=== PATIENT | female | born 1980 | race Caucasian/White ===

== ENCOUNTER → 2018-03-05 06:20 | Outpatient (CLI) | payer BC, SELFPAY ==
[2018-03-05 10:34] LABS: Anion Gap 6 (5-15); BUN 16 mg/dL (7-18); BUN/Creat Ratio 21.8 RATIO (10-20); Chloride 107 mmol/L (98-107); Cholesterol 226 mg/dL (200); Creatinine, Serum 0.73 mg/dL (0.55-1.02); EST Glomerular Filtration Rate 93 mL/min (>60); Est Glom Filt Rate - Afr Amer 113 mL/min (>60); Glucose 92 mg/dL (74-106); High Density Lipoprotein 38 mg/dL; Potassium 4.3 mmol/L (3.5-5.1); Sodium Level 139 mmol/L (136-145); Thyroid Stim Hormone (TSH) 3.02 uIU/mL (0.358-3.74); Triglycerides 186 mg/dL; Very Low Density Lipoprotein 37 mg/dL (5-40)
== END ==
PROVIDERS: Family Provider Family Medicine; PCP Family Medicine; Visit Provider Family Medicine
DX: Z00.00 Encounter for general adult medical examination without abnormal findings (principal)
CPT/HCPCS: 80048; 80061; 84443

== ENCOUNTER → 2018-04-27 11:06 | Outpatient (CLI) | payer BC, SELFPAY | LOC: MTRAD 11:10 | PROVIDERS: Family Provider Family Medicine; PCP Family Medicine; Visit Provider Family Medicine | DX: M25.571 Pain in right ankle and joints of right foot (principal) | CPT/HCPCS: 73610 ==

== ENCOUNTER → 2019-03-08 16:12 | Outpatient (CLI) | payer BC, SELFPAY ==
[2017-03-03 11:54] VITALS: BMI 31.2
--- NOTE | 2019-03-08 16:17 | RAD_ITS ---
STUDY: X-RAY - ABDOMEN/PELVIS REASON FOR EXAM: Female, 39 years old. Abdominal pain TECHNIQUE: 3 views of the abdomen were performed COMPARISON: None. FINDINGS: Normal visualized lung bases. There is an unremarkable bowel gas pattern. There is no demonstrated free abdominal air. The visualized liver, spleen and kidneys are grossly normal in size and morphology. Normal soft tissue structures. Normal visualized osseous structures. RAD/Abd Inc Decub and/or Erect IMPRESSION: Normal x-ray examination of the abdomen and pelvis. Electronically Signed: Soraya Hdz, at 16:57 EDT Tel , Service support ,
== END ==
LOC: MTRAD 16:15
PROVIDERS: Family Provider Family Medicine; PCP Family Medicine; Referring Provider Nurse Practitioner Adult Health; Visit Provider Nurse Practitioner Adult Health
DX: R10.9 Unspecified abdominal pain (principal)
CPT/HCPCS: 74019

== ENCOUNTER 2019-03-11 10:35 | Emergency (ER) | payer BC, SELFPAY ==
[2019-03-11 10:37] VITALS: BP 153/85; PULSE 89; RESP 16; TEMP 36.8; O2SAT 100; BMI 33.6
--- NOTE | 2019-03-11 10:52 | CT_ITS ---
HISTORY: CONSTIPATION, ABD DISTENTION, NAUSEA/VOMITING X 4 DAYS,HYSTERECTOMY, CHOLECYSTECTOMY, APPENDECTOMY TECHNIQUE: Helically acquired images were obtained of the abdomen and pelvis with oral and without IV contrast. A radiation dose optimization technique was used for this scan. COMPARISON: Abdominal radiographs 03/08/19. FINDINGS: # of images incl. paperwork: [id number] LOWER CHEST: No acute or concerning findings lung bases. LIVER: Homogeneous. No focal mass. GALLBLADDER AND BILIARY TREE: Status post cholecystectomy. No intra- or extrahepatic biliary ductal dilation. KIDNEYS AND URETERS: Normal renal size and position. No hydronephrosis. ADRENAL GLANDS: Non-enlarged. SPLEEN: Normal size, no mass. PANCREAS: No pancreatic inflammation or mass. BOWEL: Prior appendectomy. No obstruction or inflammation of the bowel. Noninflamed duodenal diverticulum. Scattered colonic diverticula, no diverticulitis. LYMPH NODES: No enlarged mesenteric or retroperitoneal lymph nodes. PERITONEUM: No ascites or free air. No other fluid collection. VESSELS: No abdominal aortic aneurysm. URINARY BLADDER: Unremarkable. REPRODUCTIVE ORGANS: No pelvic masses. Status post hysterectomy. Left ovary unremarkable. Right ovary not identified.. ABDOMINAL WALL: No concerning findings. BONES: No acute osseous abnormality. CT/Abdomen/Pel W ORAL Cont Only IMPRESSION: No acute or concerning findings. Individualized dose optimization techniques were used for this CT. at 1401 Reported and signed by: Rene Espinoza MD Electronically Signed: Rene Espinoza, at 14:00 EDT Tel , Service support ,
--- NOTE | 2019-03-11 10:53 | ED.DCSUM_ITS ---
History of Present Illness Chief Complaint: Constipation Informant: Patient Onset: Days Context: Sudden Onset Timing: Continuous, Waxes and wanes Quality: Generalized colicky pain Location: Generalized abdominal Current Severity: Mild Maximum Severity: Moderate Worsened by: Vomiting, palpation Relieved by: Nothing Associated Symptoms: Nausea and vomiting today and no flatus Narrative: Patient is a 39-year-old woman status post appendectomy, right salpingo- oophorectomy, abdominal hysterectomy and exploratory laparotomy who presents with no bowel movement for the past several days. Today she reported nausea and vomiting x2 and reports no flatus since yesterday. She was seen by her primary care physician and had x-rays on Friday which revealed significant fecal stasis. Patient was instructed to drink a bottle of mag citrate on Friday. Since she had no results on Friday or Friday was instructed to drink a bottle of mag citrate yesterday, once a day. Since she has had no results she was instructed to come to the emergency department. She denies fever, chills night sweats. She denies urologic symptoms. She denies cardiopulmonary symptoms. She denies prior history of bowel obstruction. She has seen Dr. David Parks. Prior similar symptoms: Yes Recent Illness/Hospitalization: No - Past Medical History (1) Diabetes Status: Chronic (2) Gout Status: Chronic (3) HTN (hypertension) Status: Chronic (4) Restless leg syndrome Status: Chronic Past Medical History - Allergies and Home Meds Allergies/Adverse Reactions: Allergies shellfish derived Allergy (Verified 03/11/19 10:39) Shortness of breath Primary Care Physician: Jose Soto MD [Primary Care Provider] - Surgical History: appendectomy, hysterectomy - Right salpingo-oophorectomy Lives: Spouse/ Significant Other Smoking Status: Current every day smoker Alcohol: Rare Drugs: None Review of Systems General: Denies: Chills, Fever, Sweats Eyes: Denies: Visual changes - bilaterally, Blurred Vision - bilaterally, Diplopia ENT: Denies: Rhinorrhea, Sore throat Cardiovascular: Denies: Chest pain, Palpitations, Heart racing Respiratory: Denies: Dyspnea, Cough, Dyspnea on exertion Gastrointestinal: Reports: Abdominal pain, Nausea, Vomiting, Constipation. Denies: Diarrhea, Melena, Hematochezia, -, - Genitourinary: Denies: Dysuria, Hematuria, Frequency Musculoskeletal: Denies: Myalgias, Arthralgias, Neck pain, Back pain, Swelling, Extremity Pain, -, - Skin: Denies: Rash, Wounds Neurological: Denies: Headache, Weakness, Numbness Hematologic: Denies: Easy bruising, Easy bleeding Allergy: Denies: Uticaria, Swelling of the mouth Physical Exam Vital Signs/Narrative: Vital Signs Temp Pulse Resp BP Pulse Ox 03/11/19 10:37 98.2 F 89 16 153/85 H 100 Inital Vital Signs reviewed: Yes Abdomen: Soft, No masses, Tender, Guarding, Hypoactive bowel sounds - Patient is tympanitic to percussion., Ventral hernia, Umbilical hernia. Negative for: Nontender, Nondistended, Normal bowel sounds, Rebound tenderness, Hyperactive bowel sounds, Hepatomegaly, Splenomegaly, Mass Rectal: Deferred Back: Nontender, Normal Inspection Extremities: Nontender, No edema Skin: Normal color, No rash, No Trauma. Negative for: Cyanosis, Diaphoresis, Jaundice Neurological: Alert, Oriented x3, Cranial nerves II-XII grossly intact, Normal Strength, Normal Sensation Psychological: Normal affect, Normal Mood Diagnostic/Tx/Re-eval Impressions Abdomen CT 03/11/19 10:52 IMPRESSION: No acute or concerning findings. Individualized dose optimization techniques were used for this CT. at 1401 Reported and signed by: Rene Espinoza MD Electronically Signed: Rene Espinoza, at 14:00 EDT Tel , Service support , 03/11/19 10:52 Abdomen/Pel W ORAL Cont Only [CT] Stat Laboratory Results 03/11/19 03/11/19 11:52 11:52 WBC 9.2 RBC 4.54 Hgb 14.4 Hct 42.4 MCV 93.4 MCH 31.7 MCHC 34.0 RDW 12.7 RDW Differential 43.0 Plt Count 341 MPV 10.4 Immature Gran % (Auto) 0.100 Neut % (Auto) 62.7 Lymph % (Auto) 27.0 [place] % (Auto) 8.4 Eos % (Auto) 1.5 Baso % (Auto) 0.3 Absolute Neuts (auto) 5.7 Absolute Lymphs (auto) 2.47 Total Counted Not Reportable Sodium 139 Potassium 4.0 Chloride 108 H Carbon Dioxide 27.0 Anion Gap 4 L BUN 12 Creatinine 0.85 Estim Creat Clear Calc 84.70 Est GFR (MDRD) Af Amer 94 Est GFR (MDRD) Non-Af 78 BUN/Creatinine Ratio 14.1 Glucose 98 Calcium 9.1 - Medical Decision Making Since patient had x-ray on Friday and has had no improvement and now reports no flatus with nausea and vomiting CT of the abdomen with p.o. contrast was obtained since it has a much higher sensitivity than plain films. BMP was obtained to assess electrolytes, CO2/anion gap and renal function. CBC to evaluate for white count. Once results are available we will reexamine patient and contact Dr. Parks who she has seen in the past. ED Disposition - Plan for ED Patient: Disposition: Home or Assisted Living Diagnosis: Generalized abdominal pain, Constipation Instructions: CONSTIPATION (Adult) Referrals: Jose Soto MD [Primary Care Provider] - 1 Week if not improving Additional Instructions: Tomorrow morning drink 10 ounces of mag citrate. 4 hours later drink 1 glass of MiraLAX. Continue to drink a glass of MiraLAX per hour until you have results.
[2019-03-11] MEDS: 0.9% Normal Saline 1,000 ML 1000 ML IV (11:48)
[2019-03-11] MEDS: Ondansetron 4 MG/2 ML Vial IV (11:48)
[2019-03-11 12:04] LABS: Absolute Lymphocyte Count 2.47 X10^3/ul (0.83-4.51); Absolute Neutrophil Count 5.7 X10^3/uL (2.0-7.7); Basophil# 0.03 X10^3/uL; Basophil% 0.3 % (0-1); Eosinophil# 0.14 X10^3/uL; Eosinophils% 1.5 % (0-5); Hematocrit 42.4 % (37-47); Hemoglobin 14.4 g/dl (12.0-15.0); Lymphocyte # 2.47 X10^3/ul (4.0); Mean Corpuscular Hgb 31.7 pg (27.0-32.0); Mean Corpuscular Volume 93.4 fL (81-99); Mean Platelet Vol. 10.4 fl (6.2-12.0); Monocyte# 0.77 X10^3/uL; Monocyte% 8.4 % (0-10); Neutrophil # 5.74 X10^3/uL (2.7-7.7); Neutrophil % 62.7 % (47-70); Platelet Count 341 K/mm3 (150-450); RBC Distribution Width CV 12.7 % (11.6-14.6); Red Blood Count 4.54 M/mm3 (4.2-5.4); White Blood Count 9.2 K/mm3 (4.4-11.0)
[2019-03-11 12:08] LABS: POSITIVE COUNT NO; POSITIVE DIFFERENTIAL NO; POSITIVE MORPHOLOGY NO
[2019-03-11 12:15] LABS: Anion Gap 4 (5-15); BUN 12 mg/dL (7-18); BUN/Creat Ratio 14.1 RATIO (10-20); Calcium,Total 9.1 mg/dL (8.5-10.1); Chloride 108 mmol/L (98-107); Creatinine, Serum 0.85 mg/dL (0.55-1.02); EST Glomerular Filtration Rate 78 mL/min (>60); Est Glom Filt Rate - Afr Amer 94 mL/min (>60); Glucose 98 mg/dL (74-106); Sodium Level 139 mmol/L (136-145)
[2019-03-11 15:02] VITALS: BP 130/84; PULSE 61; RESP 17; O2SAT 99
== END 2019-03-11 15:03 | disposition home or self-care (01) ==
PROVIDERS: Emergency Provider Emergency Medicine; Family Provider Family Medicine; PCP Family Medicine
DX: K59.00 Constipation, unspecified (principal); F17.200 Nicotine dependence, unspecified, uncomplicated
CPT/HCPCS: 74176; 80048; 85025; 96361; 96374; 99284; J7030; J2405

== ENCOUNTER 2019-03-15 12:13 | Emergency (ER) | payer BC, SELFPAY ==
[2019-03-15 12:16] VITALS: BP 139/103; PULSE 83; RESP 17; TEMP 36.8; O2SAT 100; BMI 33.5
[2019-03-15 12:19] VITALS: BP 139/103; PULSE 90; RESP 17; O2SAT 100
--- NOTE | 2019-03-15 12:26 | CT_ITS ---
STUDY: CT ABDOMEN AND PELVIS WITH CONTRAST REASON FOR EXAM: Female, 39 years old. Nausea. Constipation. RADIATION DOSAGE (If Supplied By Facility): CTDIvol = ( 17.64 ) mGy, DLP = ( 1214.68 ) mGycm TECHNIQUE: Transaxial images were obtained from the dome of the diaphragm to the symphysis pubis with oral contrast. 100 IV/Oral Isovue 300 was administered. Sagittal and coronal images were reconstructed. Individualized dose optimization techniques were used for this CT. COMPARISON: Comparison is made with prior study dated March 11, 2019. FINDINGS: The visualized lung bases are unremarkable. The visualized portions of the heart are within normal limits. Normal liver. The patient is status post cholecystectomy. Normal spleen. Normal pancreas. Normal bilateral adrenal glands. Normal right kidney. Normal left kidney. Normal visualized stomach. Normal small intestine. There are scattered colonic diverticula consistent with diverticulosis. The patient is status post appendectomy. Normal abdominal aorta. Normal inferior vena cava. Normal retroperitoneum. Normal urinary bladder. There is absence of the uterus consistent with a prior hysterectomy. Normal abdominal wall. Normal osseous structures. CT/Abdomen/Pelvis WITH Contrast IMPRESSION: Status post cholecystectomy and appendectomy. Scattered sigmoid diverticulosis. Electronically Signed: Vicenet Wayne, at 15:07 EDT , Service support ,
--- NOTE | 2019-03-15 12:54 | ED.DCSUM_ITS ---
- ER Visit Summary Date of Service: 03/15/19 Chief Complaint: [Constipation, abdominal pain History of Present Illness: The patient is a 39 F with history of prior cholecystectomy, hysterectomy, and appendectomy presents to the emergency department with abdominal pain and constipation. Patient was seen here 5 days ago for similar symptoms. At that time, she underwent CT of abdomen pelvis which did show stool burden, but no acute process. Patient's been on magnesium citrate and MiraLAX. She is also been taking stool softeners. She has had very small liquid bowel movements without any normal stool for the past 5 days. She is began to have nausea and a few bouts of vomiting per day. She admits to increasing distention and increasing pain. She was seen in the office today by her primary care and referred in for further evaluation. Physical Examination: Vital signs reviewed General: Well-nourished, well-developed Head: Normocephalic, atraumatic Eyes: Pupils equal and reactive, extraocular muscles intact Neck, supple, no lymphadenopathy Heart: Regular rate and rhythm Respiratory: No distress, clear bilaterally Abdomen: Soft, distended with mild diffuse tenderness without rebound or guarding, no peritoneal signs Back: Nontender Extremities: Nontender, no edema, no cords Skin: Normal color no rash Neuro: Alert and oriented, no focal or lateralizing deficits Test Results: [] Emergency Department Course and Treatment: IV was established. The patient was given fluids and antiemetics. She was given morphine, but it made her pain worse. The patient had screening labs done. These were unremarkable. Patient underwent CT pelvis. There is no evidence of significant stool burden. There is no bowel obstruction. Patient is seeing Dr. Powell in the past. I actually reviewed the case and he reviewed the images. My suspicion is that the patient is likely overtreated and suspected constipation is now having significant colonic spasm. Is probably why she had worsening pain with morphine. Patient was given Bentyl and Toradol and had significant improvement. I am going to have her stop her entire bowel regimen. She was given Bentyl for home. Dr. Powell is an outpatient reevaluation and potential endoscopy and colonoscopy depending on symptoms. She is comfortable with this plan of care. Treatment Plan: [] Disposition: Discharge Impression: 1. Acute abdominal pain 2. Colonic spasm This note was generated with Tip or Skipation software. It may contain incorrect words, spelling, and punctuation that were not noted in review of the chart prior to signing ED Disposition - Plan for ED Patient: Instructions: ABDOMINAL PAIN, Unknown Cause, (Female) Prescriptions: Dicyclomine HCl [Bentyl] 20 mg PO TIDAC #20 cap Prescription Printed Referrals: David Parks MD [STAFF PHYSICIAN] -
[2019-03-15] MEDS: 0.9% Normal Saline 1,000 ML 1000 ML IV (13:21)
[2019-03-15] MEDS: Ondansetron 4 MG/2 ML Vial IV (13:21)
[2019-03-15] MEDS: Morphine 4 MG/ML Syringe IV (13:26)
[2019-03-15 13:29] LABS: Bacteria 0 SEEN /hpf (None Seen); Mucous, Urine 0 SEEN /hpf (<or=2+); Red Blood Cells-Urine 0 SEEN /hpf (0-5); Squamous Epithelial Cells - UA 0 SEEN /hpf (5-10); White Blood Cells 0 SEEN /hpf (0-5)
[2019-03-15 13:33] LABS: Absolute Lymphocyte Count 2.77 X10^3/ul (0.83-4.51); Absolute Neutrophil Count 6.5 X10^3/uL (2.0-7.7); Basophil# 0.03 X10^3/uL; Basophil% 0.3 % (0-1); Eosinophil# 0.12 X10^3/uL; Eosinophils% 1.2 % (0-5); Hemoglobin 14.4 g/dl (12.0-15.0); Lymphocyte # 2.77 X10^3/ul (4.0); Lymphocyte % 27.2 % (19-41); Mean Corp Hgb Conc 33.5 g/gl (32-36); Mean Corpuscular Hgb 31.2 pg (27.0-32.0); Mean Corpuscular Volume 93.3 fL (81-99); Mean Platelet Vol. 10.3 fl (6.2-12.0); Monocyte# 0.75 X10^3/uL; Monocyte% 7.4 % (0-10); Neutrophil % 63.7 % (47-70); Platelet Count 357 K/mm3 (150-450); RBC Distribution Width CV 12.7 % (11.6-14.6); Red Blood Count 4.61 M/mm3 (4.2-5.4); White Blood Count 10.2 K/mm3 (4.4-11.0)
[2019-03-15 13:34] LABS: Color, Urine Yellow (Yellow); Glucose, Dipstick Normal (Normal); Ketone-Dipstick Negative (Negative); Leukocyte Esterase-Dipstick Negative /ul (Negative); Nitrite-Dipstick Negative (Negative); Occult Blood-Urine Negative /ul (Negative); POSITIVE COUNT NO; POSITIVE DIFFERENTIAL NO; POSITIVE MORPHOLOGY NO; Protein-Dipstick Negative (Negative); Specific Gravity, Urine 1.005 (1.002-1.030); Urine Bilirubin Dipstick Negative (Negative); Urine Clarity Clear (Clear); Urine Urobilinogen Normal (Normal); Urine pH 6.5 (5.0 - 8.0)
[2019-03-15 13:47] LABS: ALB/GLOB Ratio 1.1 RATIO (0.9-2.4); AST(SGOT) 11 U/L (15-37); Alanine Aminotransfer ALT/SGPT 17 U/L (13-56); Alkaline Phosphatase 107 U/L (45-117); Anion Gap 6 (5-15); BUN 10 mg/dL (7-18); BUN/Creat Ratio 12.1 RATIO (10-20); Calcium,Total 9.1 mg/dL (8.5-10.1); Chloride 106 mmol/L (98-107); Creatinine, Serum 0.83 mg/dL (0.55-1.02); EST Glomerular Filtration Rate 81 mL/min (>60); Est Glom Filt Rate - Afr Amer 98 mL/min (>60); Estimated Creatinine Clearance 86.74 ml/min; Globulin 3.6 g/dL (2.2-4.2); Glucose 97 mg/dL (74-106); Lipase 169 U/L (73-393); Magnesium 2.1 mg/dL (1.6-2.6); Potassium 3.8 mmol/L (3.5-5.1); Protein, Total 7.6 g/dL (6.4-8.2); Sodium Level 138 mmol/L (136-145)
[2019-03-15] MEDS: Ketorolac 15 MG/ML Vial IV (14:24)
[2019-03-15 15:05] VITALS: RESP 17
[2019-03-15] MEDS: Dicyclomine 20 MG/2 ML Vial IM (15:53)
[2019-03-15 16:36] VITALS: PULSE 84; RESP 16; O2SAT 98
== END 2019-03-15 16:37 | disposition home or self-care (01) ==
PROVIDERS: Emergency Provider Emergency Medicine; Family Provider Family Medicine; PCP Family Medicine
DX: K58.9 Irritable bowel syndrome, unspecified (principal); K57.30 Diverticulosis of large intestine without perforation or abscess without bleeding; R10.9 Unspecified abdominal pain; Z90.49 Acquired absence of other specified parts of digestive tract; Z90.710 Acquired absence of both cervix and uterus
CPT/HCPCS: 74177; 80053; 81001; 83690; 83735; 85025; 96361; 96372; 96374; 96375; 99283; J7030; Q9967; A4216; J2405

== ENCOUNTER 2021-12-28 12:41 | Outpatient (CLI) | payer BC, SELFPAY ==
--- NOTE | 2021-12-28 14:39 | SP.MBSS_ITS ---
Modified Barium Swallow - Patient Information Study Date: 12/28/21 Study Time: 13:00 Direct Billable Minutes: 90 Total Minutes procedure & reportin Diagnosis: Dysphagia, unspecified (R13.10 Referring Physician: Jose Soto Reason for Referral: Objectively assess swallow function, risk for aspiration, and determine recommendations for least restrictive diet textures and compensatory strategies to improve safety of swallow. Medical History: The patient is a 41-year-old female with PMH including GERD, anxiety, and fall as a young child resulting in skull fracture and concussion. She reports increased difficulty initiating her swallow in the past few months. Recently, she has noticed the difficulty initiating her swallow become more frequent (~1X/week). On certain occasions, she has felt food or drink go down the wrong way with an episode of choking on popsicle with eventual coughing to clear. She finds it easier to swallow if leaning forward. She also reports sensation of a lump in her abdomen below her chest - pt checked by her physician for this complaint. She manages reflux with omeprazole, as well as pepcid as needed. Current Diet Ordered: Regular / Thin Dentition: WNL Mental Status: WNL Respiratory Status: Oxygenating on Room Air - Penetration-Aspiration Scale Penetration-Aspiration Scale: OBJECTIVE ASSESSMENT OF SWALLOW FUNCTION (QUANTITATIVE ? PER TRIAL): PENETRATION / ASPIRATION SCALE (CHAUHAN): 1 = does not enter airway 2 = enters airway/above vocal folds/ejected 3 = enters airway/above vocal folds/not ejected 4 = enters airway/contacts vocal folds/ejected 5 = enters airway/contacts vocal folds/not ejected 6 = enters airway/below vocal folds/ejected 7 = enters airway/below vocal folds/not ejected despite effort 8 = enters airway/below vocal folds/no effort VIDEOFLOROSCOPIC SCALE SCORE (CHAUHAN): Grade I = aspiration of material that has penetrated into the laryngeal vestibule, intact cough reflex Grade II = aspiration < 10 % of the bolus, intact cough reflex Grade III = aspiration of < 10 % of the bolus, reduced cough reflex or aspiration of > 10 % of the bolus, intact cough reflex Grade IV = aspiration of > 10 % of the bolus, reduced cough reflex - Penetration-Aspiration Scale Score Thin Liquid via teaspoon Result: 1= does not enter airway Thin Liquid via teaspoon Trial 2 Result: 1= does not enter airway Thin Liquid via small single sip from cup Result: 1= does not enter airway Thin Liquid via sequential sips from cup Result: 1= does not enter airway Jeff Thick Liquid via small single sip from cup Result: 1= does not enter airway Honey Thick Liquid via small single sip from cup Result: 1= does not enter airway Pudding via teaspoon with esophageal screen Result: 1= does not enter airway Comment: Retention of large portion of bolus in mid esophagus. Cookie with esophageal screen Result: 1= does not enter airway Comment: Good esophageal clearance. Thin Liquid via single sip from straw Result: 1= does not enter airway Thin Liquid via sequential sips from straw Result: 2= enter airway/above vocal folds/ejected - Oral Phase Labial Seal: No Labial Escape Tongue Control During Bolus Hold: Posterior escape of less than half of bolus Bolus Preparation/Mastication: Timely and efficient chewing and mashing Bolus Transport/Lingual Motion: Delayed initiation of tongue motion Oral Residue: Trace residue lining oral structures - Pharyngeal Phase Initiation of Pharyngeal Swallow: Bolus head in pyriforms Soft Palate Elevation: Trace column of contrast/air between soft palate and pharyngeal wall Laryngeal Elevation: Partial superior movement thyroid cart/partial apprx aryt- epig petiole Anterior Hyoid Excursion: Complete anterior movement Epiglottic Movement: Complete inversion Laryngeal Vestibule Closure at Height of Swallow: Incomplete; narrow column of air/contrast in laryngeal vestibule Pharyngeal Stripping Wave: Present - complete Pharyngoesophageal Segment Opening: Parital distension and partial duration; parital obstruction of flow Tongue Base Retraction: No contrast between tongue base and posterior pharyngeal wall Pharyngeal Residue: Trace residue within or on pharyngeal structures - Esophageal Phase Esophageal Clearance: Esophageal retention - Treatment Strategies Effects of treatment strategies attemped:: N/A - Diagnosis/Impression Diagnosis: Mild oropharyngeal phase dysphagia (R13.12) Impression: The patient demonstrates mildly decreased bolus control and mild delay initiating the swallow. Posterior loss of initial thin liquid tsp trial to the pyriforms prior to swallow onset. She presented with delayed initiation of the swallow during pudding trial, reporting it was difficult to start the swallow. She did present with good airway closure during the swallow, experiencing trace laryngeal penetration with full ejection on sequential sips of thin liquids. No aspiration observed during the study. She presents with mildly decreased laryngeal elevation and UES opening. She had retention of pudding bolus in her mid esophagus. - Recommendations Diet: Regular Textures, Thin Liquids Compensatory Strategies: Small Bites, Small Sips, Slow Rate, Sitting upright, R emain sitting upright for 30 minutes after PO intake Recommend Repeat Modified Barium Swallow: No Need for Skilled Speech Therapy Services: Yes Comment: Would consider OP speech therapy consult to implement oropharyngeal exercises to improve lingual coordination, swallow timing, and laryngeal elevation (e.g. [place], effortful swallows). Would additionally recommend education re: aspiration precaution and reflux management. Recommended Referrals: GI Consult - Retention in mid esophagus of pudding. Pt reports sensing lump in middle of abdomen when eating. Education Completed: 1. Described result of evaluation., 7. Pt requires further education on strategies & risks. - Status Active ST Patient: Active - Contact Information [facility] Speech Therapy:: Peggy Sharpe M.A. [facility]-[employer]OUNDER OPERATOR Speech-Language Pathologist [facility] [address] [place] [address] [email or web address] [phone] 12/28/21 14:57
== END 2021-12-28 23:59 | disposition home or self-care (01) ==
LOC: RAD 12:44
PROVIDERS: PCP Family Medicine; Referring Provider Family Medicine; Visit Provider Family Medicine
DX: R13.10 Dysphagia, unspecified (principal)
CPT/HCPCS: 74230; 92611

== ENCOUNTER 2022-03-28 17:19 | Emergency (ER) | payer BC, SELFPAY ==
[2022-03-28 17:20] VITALS: BP 152/83; PULSE 80; RESP 16; TEMP 36.4; O2SAT 100; BMI 30.5
--- NOTE | 2022-03-28 17:41 | CT_ITS ---
EXAM: CT ABDOMEN AND PELVIS WITHOUT INTRAVENOUS CONTRAST CLINICAL INDICATION: left flank pain TECHNIQUE: Helically acquired images were obtained of the abdomen and pelvis without intravenous contrast. This CT exam was performed using one or more of the following dose reduction techniques: automated exposure control, adjustment of the mA and/or kV according to patient size, and/or use of iterative reconstruction technique. This report was created using [employer] report generation technology. RADIATION DOSE: CTDIvol = 13.10 mGy, DLP = 696.94 mGy-cm. COMPARISON: 03/15/2019. FINDINGS: LOWER THORAX: Unremarkable. Lung bases are clear. No cardiomegaly. No significant pericardial effusion. ABDOMEN: LIVER: Unremarkable. Homogeneous. GALLBLADDER AND BILE DUCTS: Cholecystectomy. No intra- or extrahepatic biliary ductal dilation. PANCREAS: Unremarkable. No focal cystic mass. SPLEEN: Unremarkable. Normal size without focal cystic or solid mass. ADRENALS: Unremarkable. No nodules. KIDNEYS AND URETERS: Unremarkable. Normal renal size and position. No hydronephrosis. STOMACH AND BOWEL: Scattered diverticula without diverticulitis. No stomach or bowel distention. PELVIS: APPENDIX: Appendectomy. BLADDER: Unremarkable. REPRODUCTIVE: Hysterectomy. ABDOMEN and PELVIS: INTRAPERITONEAL SPACE: Unremarkable. No ascites or other fluid collection. No free air. BONES/JOINTS: Unremarkable. No suspicious lytic or blastic abnormality. SOFT TISSUES: Unremarkable. No discrete abdominal or pelvic wall hernia. VASCULATURE: Unremarkable. Abdominal aorta is non-dilated. LYMPH NODES: Unremarkable. No enlarged lymph nodes. CT/Abdomen/Pelvis without Cont IMPRESSION: 1. No acute abdominal pelvic abnormality. 2. Cholecystectomy. 3. Hysterectomy. Electronically Signed: Aman Paz MD at 18:25 EDT ,
--- NOTE | 2022-03-28 17:42 | EDS_ITS ---
HPI <TEMO Schultz - Last Filed: 03/28/22 19:13> HPI - Female History of Present Illness Chief Complaint: Complaint Narrative Narrative: 42-year-old female presents with 3 days of urinary frequency and decreased output with darker-colored urine. She also had left flank pain which worsened today. The flank pain waxes and wanes. She was seen at urgent care and told she had blood in her urine and was sent here to rule out a kidney stone. She has no history of kidney stones or pyelonephritis. The only medication she takes is a PPI. She has had an appendectomy, cholecystectomy, and hysterectomy with right oophorectomy. Denies chest pain, shortness of breath, or cough. PFSH <TEMO Schultz - Last Filed: 03/28/22 19:13> PFS Home Medications omeprazole 20 mg capsule,delayed release 40 mg PO DAILY 02/15/15 [History Last Taken 03/03/17 09:00] theanine (bulk) 99.1 % powder 100 gm MC DAILY 03/11/19 [History Last Taken Unknown] dicyclomine 10 mg capsule 20 mg PO TIDAC #20 caps 03/15/19 [Rx Last Taken Unknown] metaxalone 400 mg tablet 800 mg PO TID PRN muscle pain 5 days #30 tabs 03/28/22 [Rx Last Taken Unknown] Allergy/AdvReac Type Severity Reaction Status Date / Time shellfish derived Allergy Shortness Verified 03/28/22 17:22 of breath Social History Smoking Status: Current every day smoker tobacco type: cigarettes ROS <TEMO Schultz - Last Filed: 03/28/22 19:13> ROS ED ROS Narrative Constitutional: Negative for fever, chills, malaise. Eyes: Negative for visual change. ENT: Negative for sore throat, ear pain, rhinorrhea. CVS: Negative for palpitations, chest pain, syncope. Respiratory: Negative for shortness of breath, cough, orthopnea. GI: Negative for abdominal pain, nausea, vomiting, diarrhea, constipation, melena, hematochezia. : Positive for dysuria, frequency. Neuro: Negative for headache, motor/sensory dysfunction. Skin: Negative for rash, abscess, or wound. Musc: Negative for joint pain, swelling, trauma. Heme: Negative for easy bruising, bleeding, lymphadenopathy. EXAM <TEMO Schultz - Last Filed: 03/28/22 19:13> Physical Exam Narrative Exam Narrative: CONST: Patient sitting in no acute distress. EYES: Normal inspection. NECK: Normal inspection. RESP: No respiratory distress, CTAB. CVS: Regular rate and rhythm, no murmur, no gallop. ABD: Soft and nontender, no guarding or rebound. Back: Normal inspection, left CVA tenderness. SKIN: Color normal, no rash, warm, dry, intact. EXTREMITIES: Normal appearance, no pedal edema. NEURO: Oriented x4. PSYCH: Normal affect. Const Vital Signs: 03/28/22 17:20 03/28/22 18:42 Temperature 97.6 F L 97.6 F L Temperature Source Temporal Temporal Pulse Rate 80 80 Respiratory Rate 16 16 Blood Pressure 152/83 H 152/83 H Blood Pressure Mean 106 Pulse Ox 100 100 Oxygen Delivery Method Room Air Room Air <Dr. Jcarlos Stahl MD - Last Filed: 03/28/22 19:12> Physical Exam Const Vital Signs: 03/28/22 17:20 03/28/22 18:42 Temperature 97.6 F L 97.6 F L Temperature Source Temporal Temporal Pulse Rate 80 80 Respiratory Rate 16 16 Blood Pressure 152/83 H 152/83 H Blood Pressure Mean 106 Pulse Ox 100 100 Oxygen Delivery Method Room Air Room Air MDM <TEMO Schultz - Last Filed: 03/28/22 19:13> [facility] MDM Narrative Medical decision making narrative: Patient presents with left-sided back pain and urinary frequency. She appears well and . Afebrile and vital signs unremarkable. Heart is regular. Lungs clear. Abdomen soft, nontender. She does have left CVA tenderness; no midline spinal tenderness. No rashes or swelling of the area. Lab work including CBC and BMP are within normal limits. UA is negative with no hematuria. CT obtained to rule out kidney stone and shows no acute process. The etiology of flank pain is not clear but it may be musculoskeletal. After talking with her she does a very physical job and does have some lumbar paraspinal tenderness will be started on Skelaxin and recommended to take Tylenol or Motrin. She was discharged in stable condition. 1. Myofascial strain, left lumbar area Lab Data Attestation: I reviewed the patient's lab results. Labs: Laboratory Results - last 24 hr 03/28/22 03/28/22 03/28/22 17:45 17:45 17:55 WBC 9.7 RBC 4.22 Hgb 13.2 Hct 40.5 MCV 96.0 MCH 31.3 MCHC 32.6 RDW Std Deviation 45.5 H RDW Coeff of Leanne 13.0 Plt Count 344 MPV 10.3 Immature Gran % (Auto) 0.300 Neut % (Auto) 53.9 Lymph % (Auto) 34.6 [place] % (Auto) 7.9 Eos % (Auto) 2.8 Baso % (Auto) 0.5 Absolute Neuts (auto) 5.2 Absolute Lymphs (auto) 3.35 Nucleated RBC % 0 Sodium 139 Potassium 3.7 Chloride 106 Carbon Dioxide 29.0 Anion Gap 4 L BUN 14 Creatinine 0.74 Estim Creat Clear Calc 94.34 Est GFR (MDRD) Af Amer 110 Est GFR (MDRD) Non-Af 91 BUN/Creatinine Ratio 18.9 Glucose 94 Calcium 9.0 Urine Color Straw Urine Clarity Clear Urine pH 6.5 Ur Specific [place] 1.010 Urine Protein Negative Urine Glucose (UA) Normal Urine Ketones Negative Urine Occult Blood Negative Urine Nitrite Negative Urine Bilirubin Negative Urine Urobilinogen Normal Ur Leukocyte Esterase Negative Urine RBC 0 SEEN Urine WBC 0 SEEN Ur Squamous Epith Cells 0 SEEN Urine Bacteria 1+ Urine Mucus 0 SEEN Radiography Diagnostic Testing: Clinical Impression(s) from Imaging Studies Abdomen/Pelvis CT 03/28/22 17:41 IMPRESSION: 1. No acute abdominal pelvic abnormality. 2. Cholecystectomy. 3. Hysterectomy. Electronically Signed: Amna Paz MD at 18:25 EDT , <Dr. Jcarlos Stahl MD - Last Filed: 03/28/22 19:12> [facility] Narrative Medical decision making narrative: Patient presents with left-sided back pain and urinary frequency. She appears well and . Afebrile and vital signs unremarkable. Heart is regular. Lungs clear. Abdomen soft, nontender. She does have left CVA tenderness; no midline spinal tenderness. No rashes or swelling of the area. Lab work including CBC and BMP are within normal limits. UA is negative with no hematuria. CT obtained to rule out kidney stone and shows no acute process. The etiology of flank pain is not clear but it may be musculoskeletal and I recommended Motrin or Tylenol and follow-up with her primary care doctor. She was discharged in stable condition. 1. Left flank pain unknown etiology I have personally performed a face to face assessment of the patient and have reviewed the LV Note. I performed a substantive portion of the visit including all aspects of the following. My ro findings include: History is [42-year-old female seen with our physician project administrative assistant. Patient with left flank pain for last several days. No dysuria. No fever. No stone history.] Exam is [middle-aged female no acute distress. HEENT exam normal. Lungs are clear. Heart regular rhythm. Abdomen soft nontender moving all 4 extremities. Neurovascular intact. Back left paraspinal soft tissue tenderness consistent with myofascial strain and spasm. Spine unremarkable. Neurologic exam normal.] Medical Decision Making [work-up negative. Exam consistent with myofascial strain and spasm. Discharged home on Skelaxin. Motrin. Hot shower, warm bath and massage.] Other additions or changes: [None] Lab Data Labs: Laboratory Results - last 24 hr 03/28/22 03/28/22 03/28/22 17:45 17:45 17:55 WBC 9.7 RBC 4.22 Hgb 13.2 Hct 40.5 MCV 96.0 MCH 31.3 MCHC 32.6 RDW Std Deviation 45.5 H RDW Coeff of [place] 13.0 Plt Count 344 MPV 10.3 Immature Gran % (Auto) 0.300 Neut % (Auto) 53.9 Lymph % (Auto) 34.6 [place] % (Auto) 7.9 Eos % (Auto) 2.8 Baso % (Auto) 0.5 Absolute Neuts (auto) 5.2 Absolute Lymphs (auto) 3.35 Nucleated RBC % 0 Sodium 139 Potassium 3.7 Chloride 106 Carbon Dioxide 29.0 Anion Gap 4 L BUN 14 Creatinine 0.74 Estim Creat Clear Calc 94.34 Est GFR (MDRD) Af Amer 110 Est GFR (MDRD) Non-Af 91 BUN/Creatinine Ratio 18.9 Glucose 94 Calcium 9.0 Urine Color Straw Urine Clarity Clear Urine pH 6.5 Ur Specific [place] 1.010 Urine Protein Negative Urine Glucose (UA) Normal Urine Ketones Negative Urine Occult Blood Negative Urine Nitrite Negative Urine Bilirubin Negative Urine Urobilinogen Normal Ur Leukocyte Esterase Negative Urine RBC 0 SEEN Urine WBC 0 SEEN Ur Squamous Epith Cells 0 SEEN Urine Bacteria 1+ Urine Mucus 0 SEEN Radiography Diagnostic Testing: Clinical Impression(s) from Imaging Studies Abdomen/Pelvis CT 03/28/22 17:41 IMPRESSION: 1. No acute abdominal pelvic abnormality. 2. Cholecystectomy. 3. Hysterectomy. Electronically Signed: Aman Paz MD at 18:25 EDT , Discharge Plan Triage Chief Complaint: Complaint ED Midlevel Provider: Maria M Meng ED Provider: Jcarlos Stahl Dx/Rx/DC Orders Clinical Impression: Left flank pain Instructions: ED Flank Pain, Uncertain Cause Prescriptions: New metaxalone 400 mg tablet 800 mg PO TID PRN (Reason: muscle pain) 5 Days Qty: 30 0RF No Action omeprazole 20 MG capsule 40 mg PO DAILY Label Comments: ACID REFLUX theanine (bulk) 25 GM powder 100 gm MC DAILY dicyclomine 10 MG capsule 20 mg PO TIDAC Qty: 20 0RF Primary Care Provider: Jose Soto Referrals: Jose Soto MD [Primary Care Provider] - Activity Restrictions/Additional Instructions: Today your blood work looked normal. Your urine had no infection and no blood. Your CAT scan looked normal. No signs of kidney stones. I am not sure what is causing your flank pain but it may be musculoskeletal. I recommend alternating Tylenol and Motrin every 3 hours as needed. Follow-up with your primary care doctor. Disposition Disposition: Home, Self Care
[2022-03-28] MEDS: Ondansetron 4 MG/2 ML Vial IV (17:51)
[2022-03-28] MEDS: Ketorolac 30 MG/ML Syringe IV (17:51)
[2022-03-28] MEDS: 0.9% Normal Saline 1,000 ML 999 ML IV (17:51)
[2022-03-28 18:06] LABS: Mucous, Urine 0 SEEN /hpf (<or=2+); Red Blood Cells-Urine 0 SEEN /hpf (0-5); Squamous Epithelial Cells - UA 0 SEEN /hpf (5-10); White Blood Cells 0 SEEN /hpf (0-5)
[2022-03-28 18:10] LABS: Absolute Lymphocyte Count 3.35 X10^3/uL (0.83-4.51); Absolute Neutrophil Count 5.2 X10^3/uL (2.0-7.7); Basophil# 0.05 X10^3/uL; Basophil% 0.5 % (0-1); Eosinophil# 0.27 X10^3/uL; Eosinophils% 2.8 % (0-5); Hematocrit 40.5 % (37-47); Hemoglobin 13.2 g/dL (12.0-15.0); Lymphocyte # 3.35 X10^3/ul (0.83-4.51); Lymphocyte % 34.6 % (19-41); Mean Corp Hgb Conc 32.6 g/dL (32-36); Mean Corpuscular Hgb 31.3 pg (27.0-32.0); Mean Platelet Vol. 10.3 fl (6.2-12.0); Monocyte# 0.77 X10^3/uL; Monocyte% 7.9 % (0-10); NRBC Flagged by Analyzer 0 % (0-5); Neutrophil # 5.22 X10^3/uL (2.7-7.7); Neutrophil % 53.9 % (47-70); Platelet Count 344 K/mm3 (150-450); RBC Distribution Width SD 45.5 fl (35.1-43.9); Red Blood Count 4.22 M/mm3 (4.2-5.4); White Blood Count 9.7 K/mm3 (4.4-11.0)
[2022-03-28 18:10] LABS: Color, Urine Straw (Yellow); Glucose, Dipstick Normal (Normal); Ketone-Dipstick Negative (Negative); Leukocyte Esterase-Dipstick Negative /ul (Negative); Nitrite-Dipstick Negative (Negative); Occult Blood-Urine Negative /ul (Negative); Protein-Dipstick Negative (Negative); Urine Bilirubin Dipstick Negative (Negative); Urine Clarity Clear (Clear); Urine Urobilinogen Normal (Normal); Urine pH 6.5 (5.0 - 8.0)
[2022-03-28 18:28] LABS: Bacteria 1+ /hpf (None Seen)
[2022-03-28 18:35] LABS: Anion Gap 4 (5-15); BUN 14 mg/dL (7-18); BUN/Creat Ratio 18.9 RATIO (10-20); Chloride 106 mmol/L (98-107); Creatinine, Serum 0.74 mg/dL (0.55-1.02); EST Glomerular Filtration Rate 91 mL/min (>60); Est Glom Filt Rate - Afr Amer 110 mL/min (>60); Estimated Creatinine Clearance 94.34 ml/min; Glucose 94 mg/dL (74-106); Potassium 3.7 mmol/L (3.5-5.1); Sodium Level 139 mmol/L (136-145)
[2022-03-28 18:42] VITALS: BP 152/83; PULSE 80; RESP 16; TEMP 36.4; O2SAT 100
[2022-03-28 19:20] VITALS: BP 135/93; PULSE 62; RESP 16
[2022-03-28 19:25] VITALS: PULSE 77; RESP 15; O2SAT 99
== END 2022-03-28 19:26 | disposition home or self-care (01) ==
PROVIDERS: Physician Assistant; Emergency Provider Emergency Medicine; PCP Family Medicine; Visit Provider Emergency Medicine
DX: S39.012A Strain of muscle, fascia and tendon of lower back, initial encounter (principal); R10.9 Unspecified abdominal pain; F17.210 Nicotine dependence, cigarettes, uncomplicated; X58.XXXA Exposure to other specified factors, initial encounter
CPT/HCPCS: 74176; 80048; 81001; 85025; 96374; 96375; 99283; J7030; A4216; J2405

== ENCOUNTER 2023-02-24 11:14 | Emergency (ER) | payer OTHER, SELFPAY ==
[2023-02-24 11:20] VITALS: PULSE 81; RESP 17; TEMP 36.7; O2SAT 95; BMI 30.9
[2023-02-24 11:23] VITALS: BP 132/94
--- NOTE | 2023-02-24 11:33 | EKG12_ITS ---
Test Reason : 1 Blood Pressure : / mmHG Vent. Rate : 091 BPM Atrial Rate : 091 BPM P-R Int : 118 ms QRS Dur : 064 ms QT Int : 360 ms P-R-T Axes : 050 016 035 degrees QTc Int : 442 ms Normal sinus rhythm Septal infarct , age undetermined Abnormal ECG Confirmed by RAYMOND CARMICHAEL, SARAI ([id number]), editorial specialist ROXANA GRECO ([id number]) on 02/26/2023 12:15:58 PM Referred By: SHANNON Confirmed By:SARAI ANDRADE MD
--- NOTE | 2023-02-24 11:33 | RAD_ITS ---
STUDY: X-RAY CHEST REASON FOR EXAM: Female, 43 years old. Chest pain TECHNIQUE: Single AP portable view of the chest. COMPARISON: Comparison is made with prior study dated March 03, 2017. FINDINGS: EKG electrodes are seen. The lungs are clear and expanded. There is no demonstrated pleural abnormality. Normal size heart. Normal mediastinum and conner. Normal visualized pulmonary arteries. Normal visualized aortic arch and descending thoracic aorta. There are diffuse degenerative changes of the visualized thoracic spine. Normal visualized ribs, clavicles, and shoulders. There is no demonstrated abnormality of the visualized soft tissue structures of the upper abdomen. RAD/Chest 1 View (Portable) IMPRESSION: Normal x-ray examination of the chest. Electronically Signed: Vicente Wayne MD at 12:43 EDT ,
--- NOTE | 2023-02-24 11:34 | ED.VIS.CHEST ---
HPI History of Present Illness Chief Complaint: Chest Pain Narrative Narrative: 43-year-old female past medical history of GERD presents with left-sided chest pressure radiating to her shoulder and left arm pain that began at around 9:00 this morning, 2-1/2 hours ago. She states that she awoke today feeling lightheaded and dizzy, and off. While she was at work she developed this left-sided chest pain radiating towards her shoulder, and left arm pain. She states she has family history of early coronary artery disease and that she herself is a smoker. She denies any DVT or PE risk factors. No exacerbating or alleviating factors to her nausea. She has not vomited. PFSH PFS Home Medications omeprazole 20 mg capsule,delayed release 40 mg PO DAILY 02/15/15 [History Last Taken 03/03/17 09:00] Allergy/AdvReac Type Severity Reaction Status Date / Time shellfish derived Allergy Shortness Verified 03/28/22 17:22 of breath Social History Smoking Status: Current every day smoker tobacco type: cigarettes ROS ROS ED ROS Narrative Constitutional: No fever, no chills. HEENT: No sore throat. No neck pain. No loss of vision. No rhinorrhea. Cardiovascular: Midsternal to left-sided chest pain. No palpitations. No pedal edema. Respiratory: No cough, no shortness of breath. Abdominal: No abdominal pain. Positive nausea. No vomiting. Genitourinary: No dysuria. No hematuria. Musculoskeletal: No myalgias. Left arm pain. Neurologic: No headaches. Positive dizziness and lightheadedness. Skin: No rash. No change in color. Psychiatric: No depression. No anxiety. EXAM Physical Exam Narrative Exam Narrative: Afebrile. Vital signs noted. HEENT: Normocephalic. Atraumatic. PERRL, EOMI. Neck soft and supple. No point tenderness or step off. Cardiovascular: Regular rate and rhythm. No murmurs, rubs, or gallops appreciated. Respiratory: No tachypnea. Lungs clear to auscultation bilaterally. Gastrointestinal: Abdomen soft, nontender, with normoactive bowel sounds. No rebound or guarding. Neurological: Awake. Alert. Nonfocal, nonlateralizing. Skin: No rash. Normal color. No pallor. Musculoskeletal: No pedal edema. Full range of motion extremities. Const Vital Signs: 02/24/23 11:20 02/24/23 11:23 02/24/23 12:51 Temperature 98.1 F Temperature Source Temporal Pulse Rate 81 Respiratory Rate 17 Blood Pressure 132/94 H Blood Pressure Mean 106 Pulse Ox 95 Oxygen Delivery Method Room Air Room Air 02/24/23 12:51 02/24/23 13:00 Temperature Temperature Source Pulse Rate 78 Respiratory Rate 18 14 Blood Pressure 132/87 H 133/72 H Blood Pressure Mean 102 92 Pulse Ox 99 99 Oxygen Delivery Method Room Air Room Air Heart Score History: Slightly/Non-Suspicious ECG: Normal Age: </= 45 years Risk Factors: 1 or 2 Risk Factors Score: 1 MDM MDM MDM Narrative Medical decision making narrative: Patient has a low heart score. Chest pain work-up was pursued. EKG was obtained and interpreted by myself independently which shows normal sinus rhythm at 91 bpm without ectopy or acute ST changes. No STEMI. In the differential diagnosis is ACS versus pulmonary embolism. I reviewed the patient's laboratory work, she has slightly elevated white count of 12.6 which I think is nonspecific, normal hemoglobin of 13.3, hematocrit 40.8, platelet count normal at 350. D-dimer is negative at 0.27, initial high-sensitivity troponin is less than 3. Review of her BMP shows normal sodium of 138 normal potassium of 3.6 with BUN normal at 14 and creatinine 0.8. Glucose is appropriately elevated at 110 with a normal anion gap of 6. I individually interpreted her chest x-ray in 1 view and see no evidence of pneumonia or pneumothorax, I do not feel antibiotics are indicated. I reviewed the radiology report which confirms my independent interpretation. Her lower repeat troponin is 4. This is for a delta less than 7. At this point in time, I am unsure as to the cause of her reported chest and arm pain and malaise, but I do feel that she can be discharged safely home to follow-up with her primary care provider. Return instructions to the emergency department were reviewed. I do not feel that she requires observation at this time. Disposition is discharged home in stable condition. History & Record Review Discussion w/independent historian: Patient Additional record(s) reviewed:: Prior ED visit Lab Data Attestation: I reviewed the patient's lab results. Labs: Laboratory Results - last 24 hr 02/24/23 02/24/23 02/24/23 11:25 11:25 11:25 WBC 12.6 H RBC 4.18 L Hgb 13.3 Hct 40.8 MCV 97.6 MCH 31.8 MCHC 32.6 RDW Std Deviation 46.4 H RDW Coeff of Leanne 12.9 Plt Count 350 MPV 10.3 Immature Gran % (Auto) 0.200 Neut % (Auto) 67.6 Lymph % (Auto) 22.1 [place] % (Auto) 8.5 Eos % (Auto) 1.3 Baso % (Auto) 0.3 Absolute Neuts (auto) 8.5 H Absolute Lymphs (auto) 2.79 Nucleated RBC % 0 D-Dimer Quant (PE/DVT) < 0.27 L Sodium 138 Potassium 3.6 Chloride 107 Carbon Dioxide 25.0 Anion Gap 6 BUN 14 Creatinine 0.84 Estim Creat Clear Calc 82.25 Est GFR (MDRD) Af Amer 95 Est GFR (MDRD) Non-Af 78 BUN/Creatinine Ratio 16.7 Glucose 110 H Calcium 9.0 Troponin I High Sens < 3 L 02/24/23 13:50 WBC RBC Hgb Hct MCV MCH MCHC RDW Std Deviation RDW Coeff of Leanne Plt Count MPV Immature Gran % (Auto) Neut % (Auto) Lymph % (Auto) [place] % (Auto) Eos % (Auto) Baso % (Auto) Absolute Neuts (auto) Absolute Lymphs (auto) Nucleated RBC % D-Dimer Quant (PE/DVT) Sodium Potassium Chloride Carbon Dioxide Anion Gap BUN Creatinine Estim Creat Clear Calc Est GFR (MDRD) Af Amer Est GFR (MDRD) Non-Af BUN/Creatinine Ratio Glucose Calcium Troponin I High Sens 4 Radiography Diagnostic Testing: Clinical Impression(s) from Imaging Studies Chest X-Ray 02/24/23 11:33 IMPRESSION: Normal x-ray examination of the chest. Electronically Signed: Vicente Wayne MD at 12:43 EDT , Discharge Plan Triage Chief Complaint: Chest Pain ED Provider: Petros Roberts Dx/Rx/DC Orders Clinical Impression: Chest pain, Arm pain, left, Malaise Instructions: ED Chest Pain, Uncertain Cause, ED Pain, Acute, Uncertain Cause Prescriptions: No Action omeprazole 20 MG capsule 40 mg PO DAILY Label Comments: ACID REFLUX Primary Care Provider: Jose Soto Referrals: Jose Soto MD [Primary Care Provider] - 3-5 Days Disposition Disposition: Home, Self Care
[2023-02-24] MEDS: 0.9% Normal Saline 1,000 ML 1000 ML IV (11:49)
[2023-02-24] MEDS: Aspirin 81 MG TAB.CHEW 324 MG PO (11:49)
[2023-02-24 11:52] LABS: Absolute Lymphocyte Count 2.79 X10^3/uL (0.83-4.51); Absolute Neutrophil Count 8.5 X10^3/uL (2.0-7.7); Basophil# 0.04 X10^3/uL; Basophil% 0.3 % (0-1); Eosinophil# 0.17 X10^3/uL; Eosinophils% 1.3 % (0-5); Hematocrit 40.8 % (37-47); Hemoglobin 13.3 g/dL (12.0-15.0); Lymphocyte # 2.79 X10^3/ul (0.83-4.51); Lymphocyte % 22.1 % (19-41); Mean Corp Hgb Conc 32.6 g/dL (32-36); Mean Corpuscular Hgb 31.8 pg (27.0-32.0); Mean Corpuscular Volume 97.6 fL (81-99); Mean Platelet Vol. 10.3 fl (6.2-12.0); Monocyte# 1.07 X10^3/uL; Monocyte% 8.5 % (0-10); NRBC Flagged by Analyzer 0 % (0-5); Neutrophil # 8.53 X10^3/uL (2.7-7.7); Neutrophil % 67.6 % (47-70); Platelet Count 350 K/mm3 (150-450); RBC Distribution Width CV 12.9 % (11.6-14.6); RBC Distribution Width SD 46.4 fl (35.1-43.9); Red Blood Count 4.18 M/mm3 (4.2-5.4); White Blood Count 12.6 K/mm3 (4.4-11.0)
[2023-02-24 12:06] LABS: Anion Gap 6 (5-15); BUN 14 mg/dL (7-18); BUN/Creat Ratio 16.7 RATIO (10-20); Chloride 107 mmol/L (98-107); Creatinine, Serum 0.84 mg/dL (0.55-1.02); EST Glomerular Filtration Rate 78 mL/min (>60); Est Glom Filt Rate - Afr Amer 95 mL/min (>60); Estimated Creatinine Clearance 82.25 ml/min; Glucose 110 mg/dL (74-106); Potassium 3.6 mmol/L (3.5-5.1); Sodium Level 138 mmol/L (136-145); Troponin-I HS (w/2H Reflex) < 3 pg/mL (3.0-54.0)
[2023-02-24 12:12] LABS: D-Dimer Quantitative (DVT/PE) < 0.27 FEU/ug/m (0.27-0.49)
[2023-02-24 12:51] VITALS: BP 132/87; RESP 18; O2SAT 99
[2023-02-24 13:00] VITALS: BP 133/72; PULSE 78; RESP 14; O2SAT 99
[2023-02-24 13:41] LABS: Reflex Troponin-HS? (from REC) Y
[2023-02-24 14:15] LABS: Troponin-I HS 4 pg/mL (3.0-54.0)
[2023-02-24 14:53] VITALS: BP 129/64; PULSE 78; RESP 14; TEMP 36.6; O2SAT 99
== END 2023-02-24 14:54 | disposition home or self-care (01) ==
PROVIDERS: Emergency Provider Emergency Medicine; PCP Family Medicine; Visit Provider Emergency Medicine
DX: R07.9 Chest pain, unspecified (principal); M79.602 Pain in left arm; R53.81 Other malaise; F17.210 Nicotine dependence, cigarettes, uncomplicated; K21.9 Gastro-esophageal reflux disease without esophagitis; Z79.899 Other long term (current) drug therapy
CPT/HCPCS: 71045; 80048; 84484; 85025; 85379; 93005; 96360; 99284; J7030; A4216

== ENCOUNTER → 2023-12-31 | Outpatient (CLI) | payer OTHER, SELFPAY ==
[2023-12-31 17:55] LABS: ALB/GLOB Ratio 1.1 RATIO (0.9-2.4); AST(SGOT) 27 U/L (15-37); Alanine Aminotransfer ALT/SGPT 43 U/L (13-56); Albumin, Serum 3.7 g/dL (3.2-5.0); Alkaline Phosphatase 92 U/L (45-117); Anion Gap 5 (5-15); BUN 14 mg/dL (7-18); BUN/Creat Ratio 17.8 RATIO (10-20); Chloride 105 mmol/L (98-107); Cholesterol 265 mg/dL (200); Creatinine, Serum 0.79 mg/dL (0.55-1.02); EST Glomerular Filtration Rate 84 mL/min (>60); Est Glom Filt Rate - Afr Amer 101 mL/min (>60); Globulin 3.3 g/dL (2.2-4.2); Glucose 88 mg/dL (74-106); High Density Lipoprotein 48 mg/dL; Potassium 3.8 mmol/L (3.5-5.1); Sodium Level 139 mmol/L (136-145); Thyroid Stim Hormone (TSH) 2.57 uIU/mL (0.358-3.74); Triglycerides 134 mg/dL; Very Low Density Lipoprotein 27 mg/dL (5-40)
== END | disposition home or self-care (01) ==
LOC: MFPLAB 16:46
PROVIDERS: PCP Family Medicine; Visit Provider Family Medicine
DX: Z00.00 Encounter for general adult medical examination without abnormal findings (principal)
CPT/HCPCS: 36415; 80053; 80061; 84443

== ENCOUNTER → 2024-04-09 | Outpatient (CLI) | payer OTHER, SELFPAY ==
[2024-04-09 10:19] LABS: AST(SGOT) 13 U/L (15-37); Alanine Aminotransfer ALT/SGPT 22 U/L (13-56); Albumin, Serum 3.5 g/dL (3.2-5.0); Alkaline Phosphatase 90 U/L (45-117); Anion Gap 9 (5-15); BUN 12 mg/dL (7-18); BUN/Creat Ratio 14.7 RATIO (10-20); Calcium,Total 8.9 mg/dL (8.5-10.1); Chloride 110 mmol/L (98-107); Cholesterol 230 mg/dL (200); Creatinine, Serum 0.82 mg/dL (0.55-1.02); EST Glomerular Filtration Rate 80 mL/min (>60); Est Glom Filt Rate - Afr Amer 97 mL/min (>60); Globulin 3.6 g/dL (2.2-4.2); Glucose 100 mg/dL (74-106); High Density Lipoprotein 47 mg/dL; Potassium 4.2 mmol/L (3.5-5.1); Protein, Total 7.1 g/dL (6.4-8.2); Sodium Level 138 mmol/L (136-145); Triglycerides 116 mg/dL; Very Low Density Lipoprotein 23 mg/dL (5-40)
== END | disposition home or self-care (01) ==
PROVIDERS: PCP Family Medicine; Visit Provider Family Medicine
DX: E78.5 Hyperlipidemia, unspecified (principal)
CPT/HCPCS: 36415; 80053; 80061

== ENCOUNTER → 2024-10-20 | Outpatient (CLI) | payer BC, SELFPAY ==
[2024-10-20 10:44] LABS: AST(SGOT) 19 U/L (15-37); Alanine Aminotransfer ALT/SGPT 32 U/L (13-56); Albumin, Serum 3.5 g/dL (3.2-5.0); Alkaline Phosphatase 90 U/L (45-117); Anion Gap 5 (5-15); BUN 13 mg/dL (7-18); BUN/Creat Ratio 17.4 RATIO (10-20); Chloride 107 mmol/L (98-107); Cholesterol 238 mg/dL (200); Creatinine, Serum 0.75 mg/dL (0.55-1.02); EST Glomerular Filtration Rate 88 mL/min (>60); Est Glom Filt Rate - Afr Amer 107 mL/min (>60); Globulin 3.4 g/dL (2.2-4.2); Glucose 98 mg/dL (74-106); High Density Lipoprotein 53 mg/dL; Potassium 4.3 mmol/L (3.5-5.1); Protein, Total 6.9 g/dL (6.4-8.2); Sodium Level 139 mmol/L (136-145); Triglycerides 71 mg/dL; Very Low Density Lipoprotein 14 mg/dL (5-40)
== END | disposition home or self-care (01) ==
LOC: MTLAB 07:32
PROVIDERS: PCP Family Medicine; Referring Provider Family Medicine; Visit Provider Family Medicine
DX: E78.5 Hyperlipidemia, unspecified (principal)
CPT/HCPCS: 36415; 80053; 80061

== ENCOUNTER 2024-12-29 09:19 | Emergency (ER) | payer BC, SELFPAY ==
[2024-12-29 09:20] VITALS: BP 146/89; PULSE 76; RESP 18; TEMP 36.4; O2SAT 100; BMI 30.9
--- NOTE | 2024-12-29 09:26 | EKG12_ITS ---
Test Reason : CP Blood Pressure : */* mmHG Vent. Rate : 75 BPM Atrial Rate : 75 BPM P-R Int : 146 ms QRS Dur : 66 ms QT Int : 390 ms P-R-T Axes : 36 19 19 degrees QTcB Int : 435 ms Normal sinus rhythm Normal ECG Confirmed by Aman Wisdom ([id number]), legal editor ROXANA GRECO ([id number]) on 12/31/2024 6:58:24 AM Referred By: SRI/ELA Confirmed By: Aman Wisdom
--- NOTE | 2024-12-29 09:35 | ED.VIS.CHEST ---
HPI History of Present Illness Chief Complaint: Chest Pain Informant: patient Onset/Context/Timing Onset: Today Activity at onset: sudden Timing: Continuous Quality: Positive for Pressure Location: Substernal Current Severity: Mild Maximum Severity: Mild Worsened By: Nothing Relieved By: Nothing Associated Symptoms: Positive for Diaphoresis, Dyspnea and Lightheadedness Narrative Narrative: 44-year-old female history depression anxiety and elevated cholesterol. No cardiac history. No history of DVT or PE. States she was seated at work at a desk 8 AM but midsternal chest pressure going to her back. Since she developed shortness of breath, sweating and headache and felt dizzy. Never had the like this before. States the pain is worst on her back in her chest. Concerned because her mom had cardiac years ago and had no known history of cardiac disease. Prior Similar Symptoms: No Recent Illness/Hospitalization: No CVD Risk Factors: Positive for Hypercholesterolemia; Negative for Hypertension, Diabetes, Family History 1' </=55 or Smoking PE Risk Factors: Negative for Recent Travel/Surgery, Recent Immobilization, Prior DVT or PE, Cancer or OCP + Smoking + >/=35 TAD Risk Factors: Negative for Marfan's Syndrome PFSH PFS Home Medications ?Medication ?Instructions ?Recorded ?Last Taken ?Type omeprazole 20 mg capsule,delayed 20 mg PO DAILY 02/15/15 12/29/24 History release multivitamin (Daily Multi-Vitamin 1 tab PO DAILY 12/29/24 12/29/24 History tablet) pitavastatin calcium 2 mg tablet 2 mg PO QHS 12/29/24 12/28/24 History sertraline 100 mg tablet 100 mg PO QHS 12/29/24 12/28/24 History Allergy/AdvReac Type Severity Reaction Status Date / Time shellfish derived Allergy Shortness Verified 12/29/24 09:22 of breath Social History Smoking Status: Current every day smoker tobacco type: cigarettes ROS ROS ED ROS Narrative No recent illness. Today chest pain with diaphoresis and shortness of breath. Constitutional Constitutional ED: Denies chills or fever(s) Eyes Eyes: Reports none ENT ENT ED: Denies ear pain Cardiovascular Cardiovascular: Reports as per HPI and chest pain; Denies palpitations or racing heartbeat Respiratory/Chest Respiratory/Chest: Reports dyspnea; Denies cough Gastrointestinal Gastrointestinal: Denies abdominal pain Genitourinary Genitourinary ED: Denies dysuria or hematuria Musculoskeletal Musculoskeletal: Denies arthralgias Integumentary Denies abscess Neurologic Neurologic: Denies headache(s) Psychiatric Psychiatric: Denies anxiety Endocrine Endocrinology: Denies cold intolerance Hematologic/Lymphatic Hematologic/Lymphatic: Denies easy bleeding, easy bruising or lymphadenopathy Allergic/Immunologic Allergic/Immunologic ED: Denies mouth swelling, tongue swelling or urticaria EXAM Physical Exam Narrative Exam Narrative: Well-appearing 44-year-old female. Vital signs are stable afebrile. Initial blood pressure 146/89. Pulse ox 100% on room air no hypoxia. Currently no distress. H EENT exam pupils round reactive light. No trauma. No droop. Normal speech. Neck nontender no JVD. Lungs clear to auscultation bilaterally. Heart regular rhythm rate about 75 no murmur. Chest wall and ribs nontender. No reproducible pain. Abdomen soft nontender. Moving all 4 extremities. Calves are nontender without edema or cords. Normal air conditioning mechanic industrial strength. Normal dorsi plantarflexion. Equal symmetrical radial pulses. Back no reproducible pain or tenderness. Neurologically she is awake and alert. No focal motor deficits. Const Vital Signs: 12/29/24 09:20 12/29/24 09:26 12/29/24 09:42 Temperature 97.6 F L Temperature Source Oral Pulse Rate 76 Respiratory Rate 18 Respiratory Effort Normal Non-Labored Respiratory Pattern Normal Blood Pressure 146/89 H Blood Pressure Mean 108 Pulse Ox 100 Oxygen Delivery Method Room Air Room Air 12/29/24 10:20 12/29/24 11:00 12/29/24 12:00 Temperature Temperature Source Pulse Rate 60 64 59 L Respiratory Rate 13 17 13 Respiratory Effort Respiratory Pattern Blood Pressure 130/102 H 135/86 H 127/80 H Blood Pressure Mean 111 102 95 Pulse Ox 100 97 100 Oxygen Delivery Method Room Air Room Air Room Air Positive well nourished; Negative for cachectic, contractures or unkempt General Appearance ED: NAD; Negative for unkempt, cachectic, contractures or pallor Nutritional Appearance: Negative for cachectic HEENT Reports moist mucous membranes normocephalic and atraumatic; Negative for trauma or tenderness Eyes PERRL and EOMs intact bilaterally General Eye ED: Negative for pale conjunctiva or scleral icterus Neck no lymphadenopathy, supple and no JVD Chest Wall inspection of chest normal and palpation of chest normal Resp normal respiratory effort and clear to auscultation bilaterally Effort and Inspection: Negative for respiratory distress Auscultation: Negative for rales, rhonchi, wheezes or diminished lung sounds Cardio regular rate, regular rhythm, S1 normal heart sound, S2 normal heart sound and no murmurs Peripheral Pulses: pulses 2+ throughout GI normal to inspection, nondistended, normoactive bowel sounds, soft to palpation, non-tender, non-distended and no masses Back/Spine no CVA tenderness and no thoracic nor lumbar tenderness Extremity normal to inspection General Extremety ED: Negative for edema, pulses abnormal or tenderness General Extremity: Negative for edema or pulses abnormal Neuro oriented x3 and CN's II-XII intact bilaterally Sensorium / Orientation: awake, alert, oriented to person, oriented to place and oriented to time; Negative for confused, lethargic or stuporous Motor Exam: strength 5/5 throughout Psych mental status grossly normal Appearance: Negative for unkempt Attitude: No agitated Mood & Affect: Negative for depressed, anxious or tearful Skin no rashes or lesions noted and no wounds General Skin Exam: Negative for jaundice or pallor Rashes: No rashes noted Trauma: Negative for abrasion or laceration Heart Score History: Moderately Suspicious ECG: Normal Age: >45 - <65 years Risk Factors: 1 or 2 Risk Factors Troponin: </= Normal Limit Score: 3 MDM MDM MDM Narrative Medical decision making narrative: 44-year-old female with nonexertional chest pain into her back. No reproducible pain. No cardiac history. No history of DVT or PE and clinically I do not think it is that. No risk factors for PE or DVT. Concern for cardiac event or even an aortic dissection and no clinically she looks good and has good pulses. Her pressure is not that high. Cardiac workup along with a CTA of her chest. Repeat exam patient doing well at 11:10 AM. We went over her initial test results CAT scan and chest x-ray they are all unremarkable. Currently she is feeling well. We are waiting for a 2-hour troponin. Most likely if that is unremarkable she will be able to be discharged home with outpatient follow-up. Repeat exam at around 1:10 PM. Second troponin is negative also. Patient be discharged home. Currently having no symptoms. Outpatient follow-up. Patient is comfortable with the plan. History & Record Review Discussion w/independent historian: Patient Lab Data Attestation: I reviewed the patient's lab results. Lab results narrative: CBC normal. White count 9. H&H 13 and 39. Platelets 324. Electrolytes show a gap of 11. Normal BUN of 15 creatinine 0.8. Glucose 105. Initial troponin less than 6. 2-hour troponin less than 6 also. CTA of the chest negative. Chest x-ray negative. Labs: Laboratory Results - last 24 hr 12/29/24 12/29/24 09:37 11:37 WBC 9.4 RBC 4.22 Hgb 13.2 Hct 39.2 MCV 92.9 MCH 31.3 MCHC 33.7 RDW Std Deviation 43.4 RDW Coeff of Leanne 12.6 Plt Count 324 MPV 10.3 Immature Gran % (Auto) 0.300 Neut % (Auto) 60.5 Lymph % (Auto) 27.2 [place] % (Auto) 9.5 Eos % (Auto) 1.8 Baso % (Auto) 0.7 Absolute Neuts (auto) 5.7 Absolute Lymphs (auto) 2.55 Nucleated RBC % 0 Sodium 139 Potassium 4.2 Chloride 105 Carbon Dioxide 23.7 Anion Gap 11 BUN 15 Creatinine 0.86 Estim Creat Clear Calc 93.95 Est GFR (MDRD) Non-Af 84 BUN/Creatinine Ratio 17.2 Glucose 105 H Calcium 9.1 Troponin T High Sens < 6 Troponin T Hi Sens 2 Hr < 6 Radiography Chest X-Ray - ED: Read by ED Physician, Read by Radiologist, Unchanged, Normal, Heart, Lungs, Mediastinum, Bony Structures and No Acute Disease Diagnostic Testing: Clinical Impression(s) from Imaging Studies Chest CTA 12/29/24 09:45 IMPRESSION: Unremarkable examination. Reading Location: [facility] Chest X-Ray 12/29/24 09:50 IMPRESSION: Negative Chest. Reading Location: [facility] Chest x-ray, portable, single view interpreted by myself and radiology shows no acute abnormality. Normal cardiac silhouette. Normal lung guan. Normal mediastinum. CTA chest no dissection. Interpreted by radiologist reviewed by me agree. Rhythm Strip Rhythm Strip: Sinus Rhythm Rate: 7 Ectopy: None EKG Initial EKG: Attestation: I personally reviewed and interpreted this EKG as follows: Interpretation: Sinus Rhythm and No Acute Injury Pattern Comments: Normal sinus rhythm. Rate of 75. No acute signs of VT or ischemia. Follow-up EKG: Attestation: I personally reviewed and interpreted this EKG as follows: Interpretation: Sinus Rhythm and No Acute Injury Pattern Comments: Repeat EKG shows sinus rhythm rate of 62 no acute VT or ischemia. No ST elevation or depression. No change from the prior EKG done earlier today. Discharge Plan Triage Chief Complaint: Chest Pain ED Provider: Jcarlos Stahl Dx/Rx/DC Orders Clinical Impression: Chest pain of uncertain etiology Instructions: ED Chest Pain, Uncertain Cause Prescriptions: No Action omeprazole 20 MG capsule 20 mg PO DAILY sertraline 100 mg tablet 100 mg PO QHS pitavastatin calcium 2 mg tablet 2 mg PO QHS multivitamin [Daily Multi-Vitamin] Tablet 1 tab PO DAILY Primary Care Provider: Jose Soto Referrals: Jose Soto MD [Primary Care Provider] - As soon as possible Activity Restrictions/Additional Instructions: Your tests including your labs, 2 heart enzymes, 2 EKGs, chest x-ray and a CAT scan chest all unremarkable. No signs of a heart attack. Follow-up with your local primary care physician Dr. Jose Soto to discuss with him further evaluation and possible outpatient stress test. Print Language: Cypriot Disposition Disposition: Home, Self Care
--- NOTE | 2024-12-29 09:45 | CT_ITS ---
PROCEDURE: CTA CHEST W/WO CONTRAST 12/29/2024 REASON FOR EXAM: CP INTO BACK EVAL FOR POSSIBLE DISECTION Patient is diaphoretic. TECHNIQUE: CTA imaging of the chest with intravenous contrast. Coronal and Sagittal reconstruction series were provided. 3D, 3D post processing, 3D reconstructions, Maximum intensity projection (MIPs) Volume rendering and Shaded surface rendering was provided. CONTRAST: Isovue 370 VOLUME: 71 mL One or more dose reduction techniques were used (e.g., Automated exposure control, adjustment of the mA and/or kV according to patient size, use of iterative reconstruction technique). RADIATION DOSE SUMMARY: CTDlvol: 12 mGy DLP: 410.35 mGycm COMPARISON: Prior chest radiograph done earlier in the day. FINDINGS: Thoracic Aorta: No evidence of aneurysm. No evidence of dissection. Normal caliber. Heart: Unremarkable Pulmonary Vessels: Unremarkable Hardware: None Lymph nodes: No mediastinal lymph nodes are seen. Lungs and Airways: Unremarkable Pleura: Unremarkable Upper Abdomen: Status post cholecystectomy. Bones: Unremarkable CT/CTA Chest W/WO Contrast IMPRESSION: Unremarkable examination. Reading Location: [place] [id number]
[2024-12-29 09:47] LABS: Absolute Lymphocyte Count 2.55 X10^3/uL (0.83-4.51); Absolute Neutrophil Count 5.7 X10^3/uL (2.0-7.7); Basophil# 0.07 X10^3/uL; Basophil% 0.7 % (0-1); Eosinophil# 0.17 X10^3/uL; Eosinophils% 1.8 % (0-5); Hematocrit 39.2 % (37-47); Hemoglobin 13.2 g/dL (12.0-15.0); Lymphocyte # 2.55 X10^3/ul (0.83-4.51); Lymphocyte % 27.2 % (19-41); Mean Corp Hgb Conc 33.7 g/dL (32-36); Mean Corpuscular Hgb 31.3 pg (27.0-32.0); Mean Corpuscular Volume 92.9 fL (81-99); Mean Platelet Vol. 10.3 fl (6.2-12.0); Monocyte# 0.89 X10^3/uL; Monocyte% 9.5 % (0-10); NRBC Flagged by Analyzer 0 % (0-5); Neutrophil # 5.65 X10^3/uL (2.7-7.7); Neutrophil % 60.5 % (47-70); Platelet Count 324 K/mm3 (150-450); RBC Distribution Width CV 12.6 % (11.6-14.6); RBC Distribution Width SD 43.4 fl (35.1-43.9); Red Blood Count 4.22 M/mm3 (4.2-5.4); White Blood Count 9.4 K/mm3 (4.4-11.0)
--- NOTE | 2024-12-29 09:50 | RAD_ITS ---
PROCEDURE: CHEST 1 VIEW (PORTABLE) 12/29/2024 REASON FOR EXAM: Chest pain and chest pressure with radiation to the left shoulder. Diaphoresis. TECHNIQUE: Frontal view of the chest. COMPARISON: None FINDINGS: Hardware: EKG electrodes are seen. Heart: Cardiac and mediastinal contours are stable. Lungs: The lungs are clear. Bones: The bones are unremarkable. Other: RAD/Chest 1 View (Portable) IMPRESSION: Negative Chest. Reading Location: [place] [id number]
[2024-12-29 10:02] LABS: Anion Gap 11 (5-15); BUN 15 mg/dL (4-19); BUN/Creat Ratio 17.2 RATIO (10-20); Calcium,Total 9.1 mg/dL (7.6-11.0); Carbon Dioxide 23.7 mmol/L (21.0-32.0); Chloride 105 mmol/L (98-108); Creatinine, Serum 0.86 mg/dL (0.70-1.20); EST Glomerular Filtration Rate 84 (>60); Estimated Creatinine Clearance 93.95 ml/min (50-250); Glucose 105 mg/dL (70-99); Potassium 4.2 mmol/L (3.3-5.1); Sodium Level 139 mmol/L (133-145); Troponin T High Sensitivity < 6 ng/L (<=14)
--- NOTE | 2024-12-29 10:15 | EKG12_ITS ---
Test Reason : REPEAT Blood Pressure : */* mmHG Vent. Rate : 62 BPM Atrial Rate : 62 BPM P-R Int : 144 ms QRS Dur : 70 ms QT Int : 426 ms P-R-T Axes : 42 18 16 degrees QTcB Int : 432 ms Normal sinus rhythm Normal ECG Confirmed by Aman Wisdom ([id number]), research editor ROXANA GRECO ([id number]) on 12/31/2024 6:58:35 AM Referred By: SRI Confirmed By: Aman Wisdom
[2024-12-29 10:20] VITALS: BP 130/102; PULSE 60; RESP 13; O2SAT 100
[2024-12-29 11:00] VITALS: BP 135/86; PULSE 64; RESP 17; O2SAT 97
[2024-12-29 12:00] VITALS: BP 127/80; PULSE 59; RESP 13; O2SAT 100
[2024-12-29 12:19] LABS: Troponin T High Sens 2 HR < 6 ng/L (<=14)
[2024-12-29 13:00] VITALS: BP 119/82; RESP 16
[2024-12-29 13:16] VITALS: BP 119/82; PULSE 59; RESP 16; TEMP 36.4; O2SAT 100
== END 2024-12-29 13:23 | disposition home or self-care (01) ==
PROVIDERS: Emergency Provider Emergency Medicine; PCP Family Medicine; Visit Provider Emergency Medicine
DX: R07.9 Chest pain, unspecified (principal); F17.210 Nicotine dependence, cigarettes, uncomplicated; Z79.899 Other long term (current) drug therapy
CPT/HCPCS: 71045; 71275; 80048; 84484; 85025; 93005; 99283; Q9967; A4216